=== PATIENT | male | born 1945 | race African-American/Black ===

== ENCOUNTER 2020-04-30 18:45 | Inpatient (IN) | payer MEDICARE, MEDICAID ==
[~2020-04-30] VITALS: Ht 175.3 cm; Wt 89.8 kg
[~2020-04-30 18:45] MED LIST: CLOP75TA4 PO; METF-414 PO; VALS1TAB76 PO
[2020-04-30 20:00] VITALS: BP 154/91
[2020-04-30] MEDS ORDERED: DOCUSATE SODIUM 100MG CAPSULE PO PRN (20:15)
[2020-04-30] MEDS ORDERED: MAGNESIUM/ALUMINUM HYDROXIDE/SIMETHICONE 30ML UDC PO PRN (20:15)
[2020-04-30] MEDS ORDERED: GUAIFENESIN 200MG/10ML SUGAR FREE UDC PO PRN (20:15)
[2020-04-30] MEDS ORDERED: DIPHENHYDRAMINE 50MG/ML VIAL IV PRN (20:15)
[2020-04-30] MEDS ORDERED: LORAZEPAM 0.5MG TABLET PO PRN (20:15)
[2020-04-30] MEDS ORDERED: DEXTROSE 50% WATER 50ML SYRINGE IV PRN (20:15)
[2020-04-30] MEDS ORDERED: ACETAMINOPHEN 650MG SUPP PR PRN (20:15)
[2020-04-30] MEDS ORDERED: ONDANSETRON HCL 4MG/2ML INJ IV PRN (20:15)
[2020-04-30] MEDS ORDERED: IPRATROPIUM/ALBUTEROL 0.5-3(2.5)MG/3ML NEB HHN PRN (20:15)
[2020-04-30] MEDS ORDERED: NA PHOS,M-B/NA PHOS,DI-BA ENEMA 118ML PR PRN (20:15)
[2020-04-30] MEDS ORDERED: ACETAMINOPHEN 325MG TABLET PO PRN (20:15)
[2020-04-30] MEDS ORDERED: CLONIDINE 0.1MG TABLET PO PRN (20:15)
[2020-04-30] MEDS: BLOOD SUGAR DIAGNOSTIC STRIP TEST SCH (21:00)
[2020-04-30] MEDS: INSULIN LISPRO 100 UNITS/ML SUBCUT SCH (21:00)
[2020-04-30] MEDS: FAMOTIDINE 20MG TABLET PO SCH (22:08)
[2020-04-30] MEDS: ASPIRIN 81MG EC TABLET PO SCH (22:10)
[2020-05-01 02:27] LABS: CLARITY URINE CLEAR (CLEAR); COLOR URINE YELLOW (YELLOW); KETONES URINE NEGATIVE (NEGATIVE); LEUKOCYTE ESTERASE URINE 3+ (NEGATIVE); NITRITE URINE NEGATIVE (NEGATIVE); OCCULT BLOOD URINE TRACE (NEGATIVE); PROTEIN URINE TRACE (NEGATIVE); SPECIFIC GRAVITY URINE 1.015 (1.005-1.030)
[2020-05-01] MEDS: INSULIN LISPRO 100 UNITS/ML SUBCUT SCH ×4 (06:29→21:00)
[2020-05-01] MEDS: BLOOD SUGAR DIAGNOSTIC STRIP TEST SCH ×4 (06:29→21:25)
[2020-05-01 07:50] VITALS: BP 127/80
[2020-05-01] MEDS: ENOXAPARIN 40MG/0.4ML SYR SUBCUT SCH (09:08)
[2020-05-01] MEDS: HYDROCODONE/ACETAMINOPHEN 5/325MG TABLET PO PRN (09:09)
[2020-05-01] MEDS: CLOPIDOGREL 75MG TABLET PO SCH (09:09)
[2020-05-01] MEDS: METFORMIN HCL 500MG TABLET PO SCH ×2 (09:09→16:51)
[2020-05-01] MEDS: ASPIRIN 81MG EC TABLET PO SCH (09:09)
[2020-05-01] MEDS ORDERED: BISACODYL 5MG TABLET PO PRN (13:15)
[2020-05-01] MEDS ORDERED: LACTULOSE 20G/30ML UDC PO PRN (13:15)
[2020-05-01] MEDS ORDERED: NA PHOS,M-B/NA PHOS,DI-BA ENEMA 118ML PR PRN (13:15)
[2020-05-01 20:00] VITALS: BP 159/85
[2020-05-01] MEDS ORDERED: CEFTRIAXONE 1,000 MG in DEXTROSE 5% WATER 50 ML IV SCH (20:00)
[2020-05-01] MEDS: FAMOTIDINE 20MG TABLET PO SCH (21:19)
[2020-05-01] MEDS: ASCORBIC ACID 500 MG TABLET PO SCH (21:19)
[2020-05-02] MEDS: INSULIN LISPRO 100 UNITS/ML SUBCUT SCH ×4 (06:07→21:00)
[2020-05-02] MEDS: BLOOD SUGAR DIAGNOSTIC STRIP TEST SCH ×4 (06:07→21:00)
[2020-05-02 08:00] VITALS: BP 149/77
[2020-05-02] MEDS: ASCORBIC ACID 500 MG TABLET PO SCH ×2 (08:53→21:50)
[2020-05-02] MEDS: ENOXAPARIN 40MG/0.4ML SYR SUBCUT SCH (08:54)
[2020-05-02] MEDS: METFORMIN HCL 500MG TABLET PO SCH ×2 (08:54→17:18)
[2020-05-02] MEDS: ASPIRIN 81MG EC TABLET PO SCH (08:54)
[2020-05-02] MEDS: CLOPIDOGREL 75MG TABLET PO SCH (08:54)
[2020-05-02] MEDS: HYDROCODONE/ACETAMINOPHEN 5/325MG TABLET PO PRN (09:05)
[2020-05-02 20:00] VITALS: BP 143/67
[2020-05-02] MEDS: FAMOTIDINE 20MG TABLET PO SCH (21:50)
[2020-05-03] MEDS: BLOOD SUGAR DIAGNOSTIC STRIP TEST SCH (06:55)
[2020-05-03 08:00] VITALS: BP 141/78
[2020-05-03] MEDS: INSULIN LISPRO 100 UNITS/ML SUBCUT SCH (09:00)
[2020-05-03] MEDS: CLOPIDOGREL 75MG TABLET PO SCH (09:26)
[2020-05-03] MEDS: METFORMIN HCL 500MG TABLET PO SCH ×2 (09:26→16:11)
[2020-05-03] MEDS: ASCORBIC ACID 500 MG TABLET PO SCH ×2 (09:26→19:51)
[2020-05-03] MEDS: ASPIRIN 81MG EC TABLET PO SCH (09:27)
[2020-05-03] MEDS: ENOXAPARIN 40MG/0.4ML SYR SUBCUT SCH (09:27)
[2020-05-03] MEDS ORDERED: LEVOFLOXACIN 500MG TABLET PO SCH (11:30)
[2020-05-03] MEDS: FAMOTIDINE 20MG TABLET PO SCH (19:51)
[2020-05-03 20:00] VITALS: BP 161/84
[2020-05-04 08:05] VITALS: BP 118/76
[2020-05-04] MEDS: ASPIRIN 81MG EC TABLET PO SCH (08:41)
[2020-05-04] MEDS: METFORMIN HCL 500MG TABLET PO SCH (08:41)
[2020-05-04] MEDS: CLOPIDOGREL 75MG TABLET PO SCH (08:41)
[2020-05-04] MEDS: ASCORBIC ACID 500 MG TABLET PO SCH (08:41)
[2020-05-04] MEDS: ENOXAPARIN 40MG/0.4ML SYR SUBCUT SCH (08:41)
== END 2020-05-04 10:30 | disposition home health service (06) | DRG 64 ==
PROVIDERS: ADMIT Psychiatry & Neurology Neurology; ATTEND Internal Medicine
DX: I63.9 Cerebral infarction, unspecified (principal); I50.43 Acute on chronic combined systolic (congestive) and diastolic (congestive) heart failure; N39.0 Urinary tract infection, site not specified; G93.49 Other encephalopathy; E11.42 Type 2 diabetes mellitus with diabetic polyneuropathy; D64.9 Anemia, unspecified; N31.9 Neuromuscular dysfunction of bladder, unspecified; E78.5 Hyperlipidemia, unspecified; I11.0 Hypertensive heart disease with heart failure; R53.1 Weakness; G89.29 Other chronic pain; M54.9 Dorsalgia, unspecified; R47.81 Slurred speech; M25.569 Pain in unspecified knee; M13.0 Polyarthritis, unspecified; I27.20 Pulmonary hypertension, unspecified; Z99.3 Dependence on wheelchair; Z86.73 Personal history of transient ischemic attack (TIA), and cerebral infarction without residual deficits
CPT/HCPCS: 36415; 81003; 82565; 82962; 87077; 87186; 92523; 92610; 97110; 97162; 97166; 97530; 97535; J0696; J1650; J7060

== ENCOUNTER 2021-01-10 09:24 | Emergency (ER) | payer MEDICARE, MEDICAID ==
[~2021-01-10] VITALS: Ht 177.8 cm; Wt 82.0 kg
[~2021-01-10 09:24] MED LIST changes: +CLOP-31 PO; -CLOP75TA4 PO
[2021-01-10 09:32] VITALS: BP 177/76
== END 2021-01-10 11:44 | disposition home or self-care (01) ==
LOC: ER 09:24
DX: Z46.6 Encounter for fitting and adjustment of urinary device (principal); E11.9 Type 2 diabetes mellitus without complications; K21.9 Gastro-esophageal reflux disease without esophagitis; I10 Essential (primary) hypertension; Z86.73 Personal history of transient ischemic attack (TIA), and cerebral infarction without residual deficits; Z98.890 Other specified postprocedural states
CPT/HCPCS: 51702; 99284; A4315

== ENCOUNTER 2021-01-15 19:47 | Inpatient (IN) | payer MEDICARE, MEDICAID ==
[~2021-01-15] VITALS: Ht 182.9 cm; Wt 86.2 kg
[2021-01-15] MEDS ORDERED: NITROGLYCERIN 0.4MG TABLET SL SL PRN (20:30)
[2021-01-15] MEDS ORDERED: ASPIRIN 81MG TABLET PO ONE (20:30)
[2021-01-15] MEDS ORDERED: DILTIAZEM HCL 5MG/ML 5ML VIAL IV ONE (20:30)
[2021-01-15 21:01] LABS: BASOPHILS % 0.4 % (0.0-2.0); HEMATOCRIT. 34.2 % (42.0-52.0); HEMOGLOBIN. 11.6 g/dL (14.0-18.0); LYMPHOCYTES % 34.4 % (20.0-50.0); MEAN CORPUSCULAR HEMOGLOBIN 29.5 pg (28.0-32.0); MEAN PLATELET VOLUME 7.5 fl (7.4-10.4); MONOCYTES % 7.4 % (2.0-8.0); NEUTROPHILS % 55.8 % (40.0-76.0); PLATELET 279 x1000/uL (130-400); RED BLOOD CELL COUNT 3.93 mill/uL (4.7-6.1); RED CELL DISTRIBUTION WIDTH 14.1 % (11.6-14.6)
[2021-01-15 21:07] LABS: CHLORIDE 105 mEq/L (98-107)
[2021-01-15 21:11] LABS: D-DIMER 0.72 mg/L FEU (<0.50); PARTIAL THROMBOPLASTIN TIME 29.6 sec (23.4-31.0); PROTHROMBIN TIME 11.2 sec (9.6-11.0)
[2021-01-15 21:13] LABS: ETHANOL BLOOD < 10 mg/dL
[2021-01-15] MEDS ORDERED: LORAZEPAM 2MG/ML CPJ IV ONE (21:15)
[2021-01-15] MEDS ORDERED: AMIODARONE HCL 900 MG in DEXT 5% WATER 482 ML IV STA (21:21)
[2021-01-15] MEDS ORDERED: ENOXAPARIN 100MG/ML SYR SUBCUT ONE (21:30)
[2021-01-15] MEDS ORDERED: AMIODARONE HCL 50MG/ML 3ML VIAL IV ONE (21:30)
[2021-01-15] MEDS ORDERED: AMIODARONE HCL 900 MG in DEXT 5% WATER 482 ML IV SCH (22:00)
[2021-01-16] VITALS (84 sets, daily range): BP systolic 111–164; BP diastolic 53–104
[2021-01-16] MEDS ORDERED: IOHEXOL-350 100 ML BOTTLE ONE (01:06)
[2021-01-16] MEDS ORDERED: FURO-152 MT (01:32)
[2021-01-16] MEDS ORDERED: POTA-79 PO (01:32)
[2021-01-16] MEDS ORDERED: METF-874 MT (01:32)
[2021-01-16] MEDS ORDERED: HYDROCODONE/ACETAMINOPHEN 5/325MG TABLET PO PRN (02:00)
[2021-01-16] MEDS ORDERED: AMIODARONE HCL 900 MG in DEXT 5% WATER 482 ML IV PRN (02:00)
[2021-01-16] MEDS ORDERED: DEXTROSE 50% WATER 50ML SYRINGE IV PRN (02:15)
[2021-01-16 03:00] LABS: *AMPHETAMINES SCREEN URINE NEGATIVE (NEGATIVE); *BARBITURATES SCREEN URINE NEGATIVE (NEGATIVE); *BENZODIAZEPINES SCREEN URINE NEGATIVE (NEGATIVE); *COCAINE SCREEN URINE NEGATIVE (NEGATIVE)
[2021-01-16 03:01] LABS: CANNABINOID URINE SCREEN NEGATIVE (NEGATIVE); METHADONE URINE SCREEN NEGATIVE (NEGATIVE); OPIATES URINE SCREEN NEGATIVE (NEGATIVE); PHENCYCLIDINE URINE SCREEN NEGATIVE (NEGATIVE)
[2021-01-16 05:43] LABS: BASOPHILS % 0.4 % (0.0-2.0); HEMOGLOBIN. 10.7 g/dL (14.0-18.0); LYMPHOCYTES % 48.1 % (20.0-50.0); MEAN CORPUSCULAR HEMOGLOBIN 29.4 pg (28.0-32.0); MEAN CORPUSCULAR VOLUME 88.2 fL (80.0-94.0); MEAN PLATELET VOLUME 7.8 fl (7.4-10.4); MONOCYTES % 8.1 % (2.0-8.0); NEUTROPHILS % 41.4 % (40.0-76.0); PLATELET 242 x1000/uL (130-400); RED BLOOD CELL COUNT 3.63 mill/uL (4.7-6.1); RED CELL DISTRIBUTION WIDTH 14.4 % (11.6-14.6)
[2021-01-16 05:52] LABS: CHLORIDE 104 mEq/L (98-107)
[2021-01-16] MEDS ORDERED: POTASSIUM CHLORIDE 20MEQ TABLET SR PO NR (07:06)
[2021-01-16] MEDS: INSULIN LISPRO 100 UNITS/ML SUBCUT SCH ×4 (08:20→20:40)
[2021-01-16] MEDS: CLOPIDOGREL 75MG TABLET PO SCH (08:37)
[2021-01-16] MEDS: POTASSIUM CHLORIDE 20MEQ TABLET SR PO SCH (08:37)
[2021-01-16] MEDS: FUROSEMIDE 20MG TABLET PO SCH (08:37)
[2021-01-16] MEDS: ENOXAPARIN 30MG/0.3ML SYR SUBCUT SCH ×2 (08:38→20:40)
[2021-01-16] MEDS: BLOOD SUGAR DIAGNOSTIC STRIP TEST SCH ×4 (08:40→20:41)
[2021-01-16] MEDS: METFORMIN HCL 500MG TABLET PO SCH ×2 (08:40→18:01)
[2021-01-16] MEDS ORDERED: MEDICATION NOT ON FORMULARY EA (Metformin HCl (Metformin HCl ER) 1 TAB) MT SCH (09:00)
[2021-01-16 11:41] LABS: CLARITY URINE CLOUDY (CLEAR); COLOR URINE YELLOW (YELLOW); KETONES URINE NEGATIVE (NEGATIVE); LEUKOCYTE ESTERASE URINE 3+ (NEGATIVE); NITRITE URINE NEGATIVE (NEGATIVE); OCCULT BLOOD URINE 2+ (NEGATIVE); PH URINE 5.5 (4.5-8.0); PROTEIN URINE 1+ (NEGATIVE); SPECIFIC GRAVITY URINE 1.019 (1.005-1.030)
[2021-01-16] MEDS: AMIODARONE HCL 200 MG TABLET PO SCH ×2 (12:16→20:40)
[2021-01-16] MEDS: CEFTRIAXONE 1,000 MG in DEXTROSE 5% WATER 50 ML IV SCH (13:49)
[2021-01-17] VITALS (47 sets, daily range): BP systolic 115–157; BP diastolic 63–92
[2021-01-17 05:28] LABS: BASOPHILS % 0.4 % (0.0-2.0); EOSINOPHILS % 1.9 % (0.0-5.0); LYMPHOCYTES % 43.6 % (20.0-50.0); MEAN CORPUSCULAR HEMOGLOBIN 29.2 pg (28.0-32.0); MEAN CORPUSCULAR VOLUME 87.3 fL (80.0-94.0); MEAN PLATELET VOLUME 7.5 fl (7.4-10.4); MONOCYTES % 6.8 % (2.0-8.0); NEUTROPHILS % 47.3 % (40.0-76.0); PLATELET 265 x1000/uL (130-400); RED BLOOD CELL COUNT 3.78 mill/uL (4.7-6.1); RED CELL DISTRIBUTION WIDTH 14.2 % (11.6-14.6)
[2021-01-17 05:35] LABS: CHLORIDE 105 mEq/L (98-107)
[2021-01-17] MEDS ORDERED: POTASSIUM CHLORIDE 20MEQ TABLET SR PO SCH (06:15)
[2021-01-17] MEDS ORDERED: MAGNESIUM 2 G PREMIX 50 ML IV ONE (06:30)
[2021-01-17] MEDS: FUROSEMIDE 20MG TABLET PO SCH (08:20)
[2021-01-17] MEDS: INSULIN LISPRO 100 UNITS/ML SUBCUT SCH ×4 (08:20→21:00)
[2021-01-17] MEDS: AMIODARONE HCL 200 MG TABLET PO SCH ×2 (08:20→21:52)
[2021-01-17] MEDS: METFORMIN HCL 500MG TABLET PO SCH ×2 (08:20→18:06)
[2021-01-17] MEDS: ENOXAPARIN 30MG/0.3ML SYR SUBCUT SCH (08:20)
[2021-01-17] MEDS: POTASSIUM CHLORIDE 20MEQ TABLET SR PO SCH (08:20)
[2021-01-17] MEDS: CLOPIDOGREL 75MG TABLET PO SCH (08:20)
[2021-01-17] MEDS: MAGNESIUM OXIDE 400MG TABLET PO SCH (08:20)
[2021-01-17] MEDS: BLOOD SUGAR DIAGNOSTIC STRIP TEST SCH ×4 (08:21→21:00)
[2021-01-17] MEDS: ASPIRIN 81MG EC TABLET PO SCH (09:41)
[2021-01-17] MEDS: METOPROLOL TARTRATE 25MG TABLET PO SCH ×2 (11:56→21:52)
[2021-01-17] MEDS: CEFTRIAXONE 1,000 MG in DEXTROSE 5% WATER 50 ML IV SCH (13:15)
[2021-01-18] VITALS (34 sets, daily range): BP systolic 100–162; BP diastolic 54–105
[2021-01-18 06:59] LABS: BASOPHILS % 0.5 % (0.0-2.0); EOSINOPHILS % 2.6 % (0.0-5.0); HEMATOCRIT. 32.7 % (42.0-52.0); HEMOGLOBIN. 11.1 g/dL (14.0-18.0); LYMPHOCYTES % 37.4 % (20.0-50.0); MEAN CORPUSCULAR HEMOGLOBIN 29.5 pg (28.0-32.0); MEAN PLATELET VOLUME 7.7 fl (7.4-10.4); MONOCYTES % 8.6 % (2.0-8.0); NEUTROPHILS % 50.9 % (40.0-76.0); PLATELET 257 x1000/uL (130-400); RED BLOOD CELL COUNT 3.76 mill/uL (4.7-6.1)
[2021-01-18 07:14] LABS: CHLORIDE 106 mEq/L (98-107)
[2021-01-18] MEDS: BLOOD SUGAR DIAGNOSTIC STRIP TEST SCH ×2 (07:50→12:50)
[2021-01-18] MEDS: INSULIN LISPRO 100 UNITS/ML SUBCUT SCH ×2 (08:20→13:20)
[2021-01-18] MEDS ORDERED: ENOXAPARIN 40MG/0.4ML SYR SUBCUT SCH (09:00)
[2021-01-18] MEDS: MAGNESIUM OXIDE 400MG TABLET PO SCH (09:09)
[2021-01-18] MEDS: METOPROLOL TARTRATE 25MG TABLET PO SCH (09:09)
[2021-01-18] MEDS: METFORMIN HCL 500MG TABLET PO SCH (09:09)
[2021-01-18] MEDS: FUROSEMIDE 20MG TABLET PO SCH (09:09)
[2021-01-18] MEDS: CLOPIDOGREL 75MG TABLET PO SCH (09:09)
[2021-01-18] MEDS: AMIODARONE HCL 200 MG TABLET PO SCH (09:10)
[2021-01-18] MEDS: ASPIRIN 81MG EC TABLET PO SCH (09:11)
[2021-01-18] MEDS: POTASSIUM CHLORIDE 20MEQ TABLET SR PO SCH (09:12)
[2021-01-18] MEDS ORDERED: AMI2 PO (12:12)
[2021-01-18] MEDS ORDERED: LEVO500T89 MT (12:12)
[2021-01-18] MEDS ORDERED: METO25TA6 PO (12:12)
== END 2021-01-18 14:30 | disposition home or self-care (01) | DRG 871 ==
LOC: ER 19:47 → CVICU 22:34 → ENRESERV 22:56 → 3WST 01-18 11:55 → CVICU 01-18 12:16
PROVIDERS: ADMIT Internal Medicine; ATTEND Internal Medicine
PROC: 5A2204Z Restoration of Cardiac Rhythm, Single (ICD-10-PCS; principal; 2021-01-15)
DX: A41.9 Sepsis, unspecified organism (principal); I21.4 Non-ST elevation (NSTEMI) myocardial infarction; E44.1 Mild protein-calorie malnutrition; G93.40 Encephalopathy, unspecified; N39.0 Urinary tract infection, site not specified; I47.1 Supraventricular tachycardia; D64.9 Anemia, unspecified; E83.42 Hypomagnesemia; E87.6 Hypokalemia; N40.0 Benign prostatic hyperplasia without lower urinary tract symptoms; I48.0 Paroxysmal atrial fibrillation; I10 Essential (primary) hypertension; E11.42 Type 2 diabetes mellitus with diabetic polyneuropathy; K21.9 Gastro-esophageal reflux disease without esophagitis; M19.90 Unspecified osteoarthritis, unspecified site; R55 Syncope and collapse; Z68.25 Body mass index [BMI] 25.0-25.9, adult; Z79.4 Long term (current) use of insulin; Z79.899 Other long term (current) drug therapy; Z86.73 Personal history of transient ischemic attack (TIA), and cerebral infarction without residual deficits; Z96.0 Presence of urogenital implants
CPT/HCPCS: 36415; 71045; 71275; 80048; 80053; 80076; 80305; 80320; 81003; 82962; 83036; 83735; 83880; 84443; 84484; 85025; 85379; 87106; 93005; 93306; 97161; 99291; J0282; J0696; J1650; J2060; J3475; J3490; J7060; Q9967; G0480

== ENCOUNTER 2021-01-23 20:32 | Emergency (ER) | payer MEDICARE, MEDICAID ==
[~2021-01-23] VITALS: Ht 172.7 cm; Wt 100.0 kg
[~2021-01-23 20:32] MED LIST changes: +AMI2 PO; +FURO-152 MT; +LEVO500T89 MT; +METF-874 MT; +METO25TA6 PO; +POTA-79 PO; -VALS1TAB76 PO
[2021-01-23 23:38] LABS: BASOPHILS % 0.2 % (0.0-2.0); EOSINOPHILS % 0.4 % (0.0-5.0); HEMATOCRIT. 34.3 % (42.0-52.0); HEMOGLOBIN. 12.1 g/dL (14.0-18.0); LYMPHOCYTES % 33.4 % (20.0-50.0); MEAN CORPUSCULAR HEMOGLOBIN 30.2 pg (28.0-32.0); MEAN CORPUSCULAR VOLUME 85.9 fL (80.0-94.0); MEAN PLATELET VOLUME 7.3 fl (7.4-10.4); MONOCYTES % 4.3 % (2.0-8.0); NEUTROPHILS % 61.7 % (40.0-76.0); PLATELET 305 x1000/uL (130-400); RED BLOOD CELL COUNT 3.99 mill/uL (4.7-6.1); RED CELL DISTRIBUTION WIDTH 14.5 % (11.6-14.6)
[2021-01-23 23:57] LABS: CHLORIDE 105 mEq/L (98-107)
[2021-01-24 01:44] LABS: CLARITY URINE CLOUDY (CLEAR); COLOR URINE YELLOW (YELLOW); KETONES URINE TRACE (NEGATIVE); LEUKOCYTE ESTERASE URINE 3+ (NEGATIVE); NITRITE URINE NEGATIVE (NEGATIVE); OCCULT BLOOD URINE 3+ (NEGATIVE); PROTEIN URINE 2+ (NEGATIVE); SPECIFIC GRAVITY URINE 1.014 (1.005-1.030); UROBILINOGEN URINE 0.2 E.U./dL (0.2-1.0)
[2021-01-24] MEDS ORDERED: SULF1TAB48 MT (01:54)
[2021-01-24] MEDS ORDERED: FLUC100T MT (01:54)
[2021-01-24] MEDS ORDERED: SULFAMETHOXAZOLE/TRIMETHOPRIM 800/160MG TABLET PO ONE (02:00)
[2021-01-24] MEDS ORDERED: METRONIDAZOLE 500 MG PREMIX 100 ML IV ONE (02:00)
[2021-01-24] MEDS ORDERED: FLUCONAZOLE 100MG TABLET PO ONE (02:00)
[2021-01-24] MEDS ORDERED: LEVO750T46 MT (02:01)
[2021-01-24] MEDS ORDERED: METR500T MT (02:01)
[2021-01-24 03:41] VITALS: BP 166/69
== END 2021-01-24 03:15 | disposition home or self-care (01) ==
LOC: ER 20:32
DX: N39.0 Urinary tract infection, site not specified (principal); K52.9 Noninfective gastroenteritis and colitis, unspecified; D64.9 Anemia, unspecified; E11.9 Type 2 diabetes mellitus without complications; K21.9 Gastro-esophageal reflux disease without esophagitis; I10 Essential (primary) hypertension; Z87.440 Personal history of urinary (tract) infections; Z87.891 Personal history of nicotine dependence; Z79.899 Other long term (current) drug therapy
CPT/HCPCS: 36415; 74176; 80053; 81003; 83690; 85025; 93005; 96365; 99285; J3490

== ENCOUNTER 2021-06-07 15:47 | Emergency (ER) | payer MEDICARE, MEDICAID ==
[~2021-06-07] VITALS: Ht 175.3 cm; Wt 89.0 kg
[~2021-06-07 15:47] MED LIST changes: +FLUC100T MT; +LEVO750T46 MT; +METR500T MT; +SULF1TAB48 MT
[2021-06-07 18:32] VITALS: BP 150/82
== END 2021-06-07 18:33 | disposition home or self-care (01) ==
LOC: ER 15:47
DX: T83.098A Other mechanical complication of other urinary catheter, initial encounter (principal); Y73.8 Miscellaneous gastroenterology and urology devices associated with adverse incidents, not elsewhere classified; Y92.039 Unspecified place in apartment as the place of occurrence of the external cause; I12.9 Hypertensive chronic kidney disease with stage 1 through stage 4 chronic kidney disease, or unspecified chronic kidney disease; E11.22 Type 2 diabetes mellitus with diabetic chronic kidney disease; N18.9 Chronic kidney disease, unspecified; R94.31 Abnormal electrocardiogram [ECG] [EKG]; Z87.440 Personal history of urinary (tract) infections; Z86.19 Personal history of other infectious and parasitic diseases; Z79.84 Long term (current) use of oral hypoglycemic drugs; Z79.899 Other long term (current) drug therapy
CPT/HCPCS: 93005; 99283; A4315

== ENCOUNTER 2021-08-02 14:02 | Inpatient (IN) | payer MEDICARE, MEDICAID ==
[~2021-08-02] VITALS: Ht 177.8 cm; Wt 85.7 kg
[2021-08-02] MEDS ORDERED: SODIUM CHLORIDE 0.9% 1,000 ML IV ONE (14:30)
[2021-08-02 15:03] LABS: BASOPHILS % 0.3 % (0.0-2.0); HEMATOCRIT. 37.9 % (42.0-52.0); HEMOGLOBIN. 12.9 g/dL (14.0-18.0); MEAN CORPUSCULAR HEMOGLOBIN 29.9 pg (28.0-32.0); MEAN CORPUSCULAR VOLUME 87.9 fL (80.0-94.0); MEAN PLATELET VOLUME 7.5 fl (7.4-10.4); MONOCYTES % 6.6 % (2.0-8.0); NEUTROPHILS % 85.1 % (40.0-76.0); PLATELET 444 x1000/uL (130-400); RED BLOOD CELL COUNT 4.31 mill/uL (4.7-6.1); RED CELL DISTRIBUTION WIDTH 13.2 % (11.6-14.6)
[2021-08-02 15:06] LABS: CHLORIDE 101 mEq/L (98-107)
[2021-08-02] MEDS ORDERED: CEFTRIAXONE 1 G PREMIX 50 ML IV ONE (16:30)
[2021-08-02] MEDS ORDERED: MAGNESIUM/ALUMINUM HYDROXIDE/SIMETHICONE 30ML UDC PO PRN (20:15)
[2021-08-02] MEDS ORDERED: HYDROCODONE/ACETAMINOPHEN 5/325MG TABLET PO PRN (20:15)
[2021-08-02] MEDS ORDERED: ACETAMINOPHEN 325MG TABLET PO PRN (20:15)
[2021-08-02] MEDS ORDERED: ONDANSETRON HCL 4MG/2ML INJ IV PRN (20:15)
[2021-08-02] MEDS ORDERED: GUAIFENESIN 200MG/10ML SUGAR FREE UDC PO PRN (20:15)
[2021-08-02] MEDS: SODIUM CHLORIDE 0.9% 1,000 ML IV SCH (20:15)
[2021-08-02] MEDS ORDERED: CEFTRIAXONE 1 G PREMIX 50 ML IV SCH (20:15)
[2021-08-02 20:53] LABS: CLARITY URINE TURBID (CLEAR); COLOR URINE YELLOW (YELLOW); KETONES URINE NEGATIVE (NEGATIVE); LEUKOCYTE ESTERASE URINE 3+ (NEGATIVE); NITRITE URINE NEGATIVE (NEGATIVE); OCCULT BLOOD URINE 2+ (NEGATIVE); PH URINE 6.5 (4.5-8.0); PROTEIN URINE 3+ (NEGATIVE); SPECIFIC GRAVITY URINE 1.022 (1.005-1.030); UROBILINOGEN URINE 0.2 E.U./dL (0.2-1.0)
[2021-08-02] MEDS: ENOXAPARIN 40MG/0.4ML SYR SUBCUT SCH (21:00)
[2021-08-02] MEDS ORDERED: DEXTROSE 50% WATER 50ML SYRINGE IV PRN (23:30)
[2021-08-02] MEDS ORDERED: NALOXONE HCL 0.4 MG/ML 1ML VIAL IV PRN (23:45)
[2021-08-03] VITALS: BP 119/68
[2021-08-03] MEDS ORDERED: ZOLPIDEM TARTRATE 5MG TABLET PO PRN (00:45)
[2021-08-03] MEDS ORDERED: ZOLP5TAB2 PO (01:20)
[2021-08-03] MEDS ORDERED: HYDR12.54 PO (01:42)
[2021-08-03 04:00] VITALS: BP 141/81
[2021-08-03] MEDS: BLOOD SUGAR DIAGNOSTIC STRIP TEST SCH ×4 (06:36→21:26)
[2021-08-03] MEDS: INSULIN LISPRO 100 UNITS/ML SUBCUT SCH ×4 (06:36→21:26)
[2021-08-03 07:37] LABS: HEMATOCRIT. 35.2 % (42.0-52.0); HEMOGLOBIN. 11.7 g/dL (14.0-18.0); MEAN CORPUSCULAR HEMOGLOBIN 29.5 pg (28.0-32.0); MEAN CORPUSCULAR VOLUME 88.6 fL (80.0-94.0); MEAN PLATELET VOLUME 7.8 fl (7.4-10.4); PLATELET 332 x1000/uL (130-400); RED BLOOD CELL COUNT 3.98 mill/uL (4.7-6.1); RED CELL DISTRIBUTION WIDTH 13.5 % (11.6-14.6)
[2021-08-03 07:49] LABS: CHLORIDE 101 mEq/L (98-107)
[2021-08-03 08:00] VITALS: BP 95/61
[2021-08-03] MEDS: SODIUM CHLORIDE 0.9% 1,000 ML IV SCH ×2 (08:52→10:35)
[2021-08-03] MEDS: AMIODARONE HCL 200 MG TABLET PO SCH (10:34)
[2021-08-03] MEDS: CLOPIDOGREL 75MG TABLET PO SCH (10:34)
[2021-08-03 12:00] VITALS: BP 130/90
[2021-08-03 14:07] LABS: PLATELET ESTIMATE NORMAL
[2021-08-03 16:00] VITALS: BP 133/69
[2021-08-03] MEDS: CEFTRIAXONE 1,000 MG in DEXTROSE 5% WATER 50 ML IV SCH (17:08)
[2021-08-03] MEDS ORDERED: MAGNESIUM SULFATE 3 GM in DEXT 5% WATER 96 ML IV ONE (18:00)
[2021-08-03] MEDS ORDERED: POTASSIUM CHLORIDE 20MEQ TABLET SR PO NR (18:30)
[2021-08-03 20:00] VITALS: BP 114/67
[2021-08-03] MEDS: METOPROLOL TARTRATE 25MG TABLET PO SCH (21:24)
[2021-08-03] MEDS: ZOLPIDEM TARTRATE 5MG TABLET PO SCH (21:24)
[2021-08-03] MEDS: ENOXAPARIN 40MG/0.4ML SYR SUBCUT SCH (21:25)
[2021-08-04] VITALS: BP 115/80
[2021-08-04 04:00] VITALS: BP 120/69
[2021-08-04] MEDS: BLOOD SUGAR DIAGNOSTIC STRIP TEST SCH ×4 (06:42→21:55)
[2021-08-04] MEDS: INSULIN LISPRO 100 UNITS/ML SUBCUT SCH ×4 (06:42→21:58)
[2021-08-04 06:43] LABS: BASOPHILS % 0.1 % (0.0-2.0); EOSINOPHILS % 0.1 % (0.0-5.0); HEMATOCRIT. 30.9 % (42.0-52.0); HEMOGLOBIN. 10.5 g/dL (14.0-18.0); LYMPHOCYTES % 8.8 % (20.0-50.0); MEAN CORPUSCULAR HEMOGLOBIN 30.1 pg (28.0-32.0); MEAN CORPUSCULAR VOLUME 88.4 fL (80.0-94.0); MEAN PLATELET VOLUME 7.8 fl (7.4-10.4); MONOCYTES % 3.9 % (2.0-8.0); NEUTROPHILS % 87.1 % (40.0-76.0); PLATELET 256 x1000/uL (130-400); RED CELL DISTRIBUTION WIDTH 13.8 % (11.6-14.6)
[2021-08-04 07:50] LABS: CHLORIDE 104 mEq/L (98-107)
[2021-08-04 08:00] VITALS: BP 131/83
[2021-08-04] MEDS: CLOPIDOGREL 75MG TABLET PO SCH (09:47)
[2021-08-04] MEDS: METOPROLOL TARTRATE 25MG TABLET PO SCH ×2 (09:48→22:00)
[2021-08-04] MEDS: AMIODARONE HCL 200 MG TABLET PO SCH ×2 (09:48→22:01)
[2021-08-04] MEDS: SODIUM CHLORIDE 0.9% 1,000 ML IV SCH (11:41)
[2021-08-04 12:00] VITALS: BP 124/63
[2021-08-04 16:00] VITALS: BP 133/89
[2021-08-04] MEDS: CEFTRIAXONE 1,000 MG in DEXTROSE 5% WATER 50 ML IV SCH (17:41)
[2021-08-04] MEDS: MAGNESIUM OXIDE 400MG TABLET PO SCH (17:48)
[2021-08-04 20:00] VITALS: BP 119/68
[2021-08-04] MEDS ORDERED: ENOXAPARIN 30MG/0.3ML SYR SUBCUT SCH (21:00)
[2021-08-04] MEDS: ZOLPIDEM TARTRATE 5MG TABLET PO SCH (21:59)
[2021-08-05] VITALS: BP 125/86
[2021-08-05] MEDS: SODIUM CHLORIDE 0.9% 1,000 ML IV SCH ×2 (03:37→12:57)
[2021-08-05 04:00] VITALS: BP 133/73
[2021-08-05] MEDS: BLOOD SUGAR DIAGNOSTIC STRIP TEST SCH ×2 (06:18→12:30)
[2021-08-05] MEDS: INSULIN LISPRO 100 UNITS/ML SUBCUT SCH ×2 (06:39→12:58)
[2021-08-05 06:59] LABS: BASOPHILS % 0.1 % (0.0-2.0); EOSINOPHILS % 0.4 % (0.0-5.0); HEMATOCRIT. 29.8 % (42.0-52.0); LYMPHOCYTES % 8.6 % (20.0-50.0); MEAN PLATELET VOLUME 7.9 fl (7.4-10.4); MONOCYTES % 3.2 % (2.0-8.0); NEUTROPHILS % 87.7 % (40.0-76.0); PLATELET 229 x1000/uL (130-400); RED BLOOD CELL COUNT 3.35 mill/uL (4.7-6.1); RED CELL DISTRIBUTION WIDTH 13.8 % (11.6-14.6)
[2021-08-05 07:10] LABS: CHLORIDE 104 mEq/L (98-107)
[2021-08-05 08:00] VITALS: BP 118/65
[2021-08-05] MEDS: CLOPIDOGREL 75MG TABLET PO SCH (09:13)
[2021-08-05] MEDS: AMIODARONE HCL 200 MG TABLET PO SCH (09:13)
[2021-08-05] MEDS: MAGNESIUM OXIDE 400MG TABLET PO SCH (09:13)
[2021-08-05] MEDS: METOPROLOL TARTRATE 25MG TABLET PO SCH (09:13)
[2021-08-05 12:00] VITALS: BP 98/55
[2021-08-05 13:00] VITALS: BP 151/89
[2021-08-05 13:18] VITALS: BP 151/89
== END 2021-08-05 15:49 | disposition home health service (06) | DRG 871 ==
LOC: ER 14:02 → 8WST 18:42 → EDBEDREQ 19:25 → CANRESERV 22:04 → ENRESERV 22:04 → 6WST 23:43 → 8WST 23:45
PROVIDERS: ADMIT Hospitalist; ATTEND Hospitalist
DX: A41.81 Sepsis due to Enterococcus (principal); E43 Unspecified severe protein-calorie malnutrition; N17.9 Acute kidney failure, unspecified; I47.2 Ventricular tachycardia; N39.0 Urinary tract infection, site not specified; E11.9 Type 2 diabetes mellitus without complications; I10 Essential (primary) hypertension; I48.91 Unspecified atrial fibrillation; E83.42 Hypomagnesemia; E86.0 Dehydration; I27.20 Pulmonary hypertension, unspecified; I35.1 Nonrheumatic aortic (valve) insufficiency; K21.9 Gastro-esophageal reflux disease without esophagitis; Z20.822 Contact with and (suspected) exposure to COVID-19; M19.90 Unspecified osteoarthritis, unspecified site; R79.89 Other specified abnormal findings of blood chemistry; Z86.73 Personal history of transient ischemic attack (TIA), and cerebral infarction without residual deficits; Z74.01 Bed confinement status; Z87.440 Personal history of urinary (tract) infections; Z79.02 Long term (current) use of antithrombotics/antiplatelets; Z68.27 Body mass index [BMI] 27.0-27.9, adult; Z99.3 Dependence on wheelchair; Z28.3 Underimmunization status
CPT/HCPCS: 36415; 71045; 76770; 80053; 81003; 82962; 83735; 84484; 85025; 87077; 87186; 87426; 93005; 93970; 99285; J0696; J1650; J1815; J3475; J7030; J7060

== ENCOUNTER 2022-03-25 11:41 | Inpatient (IN) | payer MEDICARE, MEDICAID ==
[~2022-03-25] VITALS: Ht 177.8 cm; Wt 85.5 kg
[~2022-03-25 11:41] MED LIST changes: +HYDR12.54 PO; -LEVO500T89 MT; +LEVO500T90 MT; +ZOLP5TAB2 PO
[2022-03-25 12:45] LABS: BASOPHILS % 0.2 % (0.0-2.0); EOSINOPHILS % 0.3 % (0.0-5.0); HEMATOCRIT. 31.6 % (42.0-52.0); HEMOGLOBIN. 10.9 g/dL (14.0-18.0); LYMPHOCYTES % 18.2 % (20.0-50.0); MEAN CORPUSCULAR HEMOGLOBIN 29.4 pg (28.0-32.0); MEAN CORPUSCULAR VOLUME 85.5 fL (80.0-94.0); MEAN PLATELET VOLUME 7.4 fl (7.4-10.4); MONOCYTES % 9.2 % (2.0-8.0); NEUTROPHILS % 72.1 % (40.0-76.0); PLATELET 344 x1000/uL (130-400); RED BLOOD CELL COUNT 3.69 mill/uL (4.7-6.1); RED CELL DISTRIBUTION WIDTH 14.8 % (11.6-14.6)
[2022-03-25] MEDS ORDERED: SODIUM CHLORIDE 0.9% 1,000 ML IV ONE (12:45)
[2022-03-25 12:51] LABS: CHLORIDE 101 mEq/L (98-107)
[2022-03-25 13:22] LABS: INR 1.1; PROTHROMBIN TIME 11.6 sec (9.6-11.0)
[2022-03-25] MEDS ORDERED: PIPERACILLIN/TAZ 3.375G PREMIX 50 ML IV ONE (13:45)
[2022-03-25] MEDS ORDERED: VANCOMYCIN 1G PREMIX 200 ML IV ONE (13:45)
[2022-03-25] MEDS ORDERED: POTASSIUM CHLORIDE 20MEQ TABLET SR PO ONE (13:45)
[2022-03-25] MEDS ORDERED: GUAIFENESIN 200MG/10ML SUGAR FREE UDC PO PRN (16:00)
[2022-03-25] MEDS ORDERED: IPRATROPIUM/ALBUTEROL 0.5-3(2.5)MG/3ML NEB NEB PRN (16:00)
[2022-03-25] MEDS ORDERED: ZOLPIDEM TARTRATE 5MG TABLET PO PRN (16:00)
[2022-03-25] MEDS ORDERED: DEXTROSE 50% WATER 50ML SYRINGE IV PRN (16:00)
[2022-03-25] MEDS ORDERED: POTASSIUM CHLORIDE 20MEQ TABLET SR PO NR (16:00)
[2022-03-25] MEDS ORDERED: DOCUSATE SODIUM 100MG CAPSULE PO PRN (16:00)
[2022-03-25] MEDS ORDERED: ONDANSETRON HCL 4MG/2ML INJ IV PRN (16:00)
[2022-03-25] MEDS ORDERED: MAGNESIUM/ALUMINUM HYDROXIDE/SIMETHICONE 30ML UDC PO PRN (16:00)
[2022-03-25] MEDS ORDERED: ACETAMINOPHEN 325MG TABLET PO PRN ×2 (16:00)
[2022-03-25] MEDS ORDERED: CLONIDINE 0.1MG TABLET PO PRN (16:00)
[2022-03-25] MEDS ORDERED: NITROGLYCERIN 0.4MG TABLET SL SL PRN (16:00)
[2022-03-25] MEDS ORDERED: KETOROLAC 15MG/ML VIAL IV PRN (16:19)
[2022-03-25 17:00] VITALS: BP 113/78
[2022-03-25] MEDS ORDERED: ENOXAPARIN 40MG/0.4ML SYR SUBCUT SCH (17:00)
[2022-03-25 17:18] LABS: FOLIC ACID (FOLATE) SERUM 7.5 ng/mL (>5.38)
[2022-03-25] MEDS: BLOOD SUGAR DIAGNOSTIC STRIP TEST SCH ×2 (17:55→21:56)
[2022-03-25] MEDS: INSULIN LISPRO 100 UNITS/ML SUBCUT SCH ×2 (18:01→22:01)
[2022-03-25 19:30] VITALS: BP 113/78
[2022-03-25 20:00] VITALS: BP 124/71
[2022-03-25] MEDS: FAMOTIDINE 20MG TABLET PO SCH (22:00)
[2022-03-25] MEDS: VANCOMYCIN 750MG PREMIX 150 ML IV SCH (22:00)
[2022-03-25] MEDS: METOPROLOL TARTRATE 25MG TABLET PO SCH (22:00)
[2022-03-25] MEDS: PIPERACILLIN/TAZOBACTAM 3.375 G in DEXTROSE 5% WATER 50 ML IV SCH (22:00)
[2022-03-26] VITALS: BP 110/72
[2022-03-26 00:44] LABS: CREATINE KINASE 31 IU/L (39-308); CREATINE KINASE MB FRACTION < 1.0 ng/mL (0.5-3.6)
[2022-03-26 04:00] VITALS: BP 128/75
[2022-03-26] MEDS: PIPERACILLIN/TAZOBACTAM 3.375 G in DEXTROSE 5% WATER 50 ML IV SCH ×3 (06:21→21:57)
[2022-03-26] MEDS: BLOOD SUGAR DIAGNOSTIC STRIP TEST SCH ×4 (06:21→20:54)
[2022-03-26 07:07] LABS: BASOPHILS % 0.3 % (0.0-2.0); EOSINOPHILS % 0.3 % (0.0-5.0); HEMATOCRIT. 27.7 % (42.0-52.0); HEMOGLOBIN. 9.8 g/dL (14.0-18.0); LYMPHOCYTES % 25.1 % (20.0-50.0); MEAN CORPUSCULAR HEMOGLOBIN 30.1 pg (28.0-32.0); MEAN CORPUSCULAR VOLUME 85.1 fL (80.0-94.0); MEAN PLATELET VOLUME 7.7 fl (7.4-10.4); MONOCYTES % 8.7 % (2.0-8.0); NEUTROPHILS % 65.6 % (40.0-76.0); PLATELET 309 x1000/uL (130-400); RED BLOOD CELL COUNT 3.25 mill/uL (4.7-6.1); RED CELL DISTRIBUTION WIDTH 15.2 % (11.6-14.6)
[2022-03-26 07:12] LABS: CHLORIDE 104 mEq/L (98-107)
[2022-03-26 07:43] LABS: CREATINE KINASE 24 IU/L (39-308); CREATINE KINASE MB FRACTION < 1.0 ng/mL (0.5-3.6); PHOSPHORUS 1.8 mg/dL (2.5-4.9)
[2022-03-26 08:00] VITALS: BP 130/79
[2022-03-26] MEDS: FAMOTIDINE 20MG TABLET PO SCH ×2 (09:10→20:13)
[2022-03-26] MEDS: VANCOMYCIN 750MG PREMIX 150 ML IV SCH (09:10)
[2022-03-26] MEDS: AMIODARONE HCL 200 MG TABLET PO SCH (09:11)
[2022-03-26] MEDS: METOPROLOL TARTRATE 25MG TABLET PO SCH ×2 (09:11→20:12)
[2022-03-26] MEDS: ASPIRIN 325MG EC TABLET PO SCH (09:11)
[2022-03-26] MEDS: INSULIN LISPRO 100 UNITS/ML SUBCUT SCH ×4 (09:12→20:59)
[2022-03-26 12:00] VITALS: BP 128/70
[2022-03-26] MEDS: ENOXAPARIN 80MG/0.8ML SYR SUBCUT SCH ×2 (13:31→20:14)
[2022-03-26] MEDS ORDERED: POTASSIUM CHLORIDE 20MEQ/PACKET PO NR (14:15)
[2022-03-26] MEDS ORDERED: KCL 20MEQ/100ML PREMIX 100 ML IV NR (15:00)
[2022-03-26 16:00] VITALS: BP 131/73
[2022-03-26] MEDS ORDERED: POTASSIUM PHOS,M-BASIC-D-BASIC 20 MMOL in DEXT 5% WATER 243.3333 ML IV NR (16:00)
[2022-03-26] MEDS ORDERED: MAGNESIUM 1 G PREMIX 100 ML IV NR (16:00)
[2022-03-26 20:00] VITALS: BP 149/90
[2022-03-27] VITALS: BP 108/78
[2022-03-27] MEDS: VANCOMYCIN 750MG PREMIX 150 ML IV SCH ×2 (02:54→10:05)
[2022-03-27 04:00] VITALS: BP 152/82
[2022-03-27] MEDS: PIPERACILLIN/TAZOBACTAM 3.375 G in DEXTROSE 5% WATER 50 ML IV SCH ×3 (05:21→22:04)
[2022-03-27] MEDS: BLOOD SUGAR DIAGNOSTIC STRIP TEST SCH ×4 (06:21→21:56)
[2022-03-27 08:00] VITALS: BP 141/81
[2022-03-27 09:05] LABS: CHLORIDE 107 mEq/L (98-107)
[2022-03-27] MEDS: FAMOTIDINE 20MG TABLET PO SCH ×2 (10:03→22:04)
[2022-03-27] MEDS: METOPROLOL TARTRATE 25MG TABLET PO SCH ×2 (10:03→22:04)
[2022-03-27] MEDS: AMIODARONE HCL 200 MG TABLET PO SCH (10:03)
[2022-03-27] MEDS: ASPIRIN 325MG EC TABLET PO SCH (10:04)
[2022-03-27] MEDS: ENOXAPARIN 80MG/0.8ML SYR SUBCUT SCH ×2 (10:05→22:05)
[2022-03-27] MEDS: INSULIN LISPRO 100 UNITS/ML SUBCUT SCH ×4 (10:18→22:05)
[2022-03-27] MEDS ORDERED: POTASSIUM CHLORIDE 20MEQ TABLET SR PO NR (11:45)
[2022-03-27 12:00] VITALS: BP 147/77
[2022-03-27] MEDS ORDERED: LIDOCAINE HCL 1% 10 MG/ML 10ML VIAL ONE (14:45)
[2022-03-27 16:20] VITALS: BP 140/70
[2022-03-27] MEDS ORDERED: IOHEXOL-350 100 ML BOTTLE ONE (17:04)
[2022-03-27 20:00] VITALS: BP 153/76
[2022-03-28] VITALS: BP 147/81
[2022-03-28 04:00] VITALS: BP 155/87
[2022-03-28] MEDS: PIPERACILLIN/TAZOBACTAM 3.375 G in DEXTROSE 5% WATER 50 ML IV SCH ×3 (06:37→22:06)
[2022-03-28] MEDS: BLOOD SUGAR DIAGNOSTIC STRIP TEST SCH ×4 (06:55→21:00)
[2022-03-28 08:00] VITALS: BP 138/79
[2022-03-28 08:19] LABS: CLARITY URINE CLOUDY (CLEAR); COLOR URINE YELLOW (YELLOW); KETONES URINE NEGATIVE (NEGATIVE); LEUKOCYTE ESTERASE URINE 3+ (NEGATIVE); NITRITE URINE NEGATIVE (NEGATIVE); OCCULT BLOOD URINE 2+ (NEGATIVE); PROTEIN URINE TRACE (NEGATIVE); SPECIFIC GRAVITY URINE 1.014 (1.005-1.030); UROBILINOGEN URINE 0.2 E.U./dL (0.2-1.0)
[2022-03-28] MEDS: AMIODARONE HCL 200 MG TABLET PO SCH (09:06)
[2022-03-28] MEDS: FAMOTIDINE 20MG TABLET PO SCH ×2 (09:06→21:31)
[2022-03-28] MEDS: PANTOT AC/MIN OIL/PET HY-PHL OINT (AQUAPHOR) TOP SCH (09:06)
[2022-03-28] MEDS: ASPIRIN 325MG EC TABLET PO SCH (09:07)
[2022-03-28] MEDS: ENOXAPARIN 80MG/0.8ML SYR SUBCUT SCH ×2 (09:07→22:07)
[2022-03-28] MEDS: METOPROLOL TARTRATE 25MG TABLET PO SCH ×3 (09:07→21:32)
[2022-03-28] MEDS: INSULIN LISPRO 100 UNITS/ML SUBCUT SCH ×4 (09:08→22:07)
[2022-03-28 09:36] LABS: *AMPHETAMINES SCREEN URINE NEGATIVE (NEGATIVE); *BARBITURATES SCREEN URINE NEGATIVE (NEGATIVE); *BENZODIAZEPINES SCREEN URINE NEGATIVE (NEGATIVE); *COCAINE SCREEN URINE NEGATIVE (NEGATIVE); CANNABINOID URINE SCREEN NEGATIVE (NEGATIVE); METHADONE URINE SCREEN NEGATIVE (NEGATIVE); OPIATES URINE SCREEN NEGATIVE (NEGATIVE); PHENCYCLIDINE URINE SCREEN NEGATIVE (NEGATIVE)
[2022-03-28] MEDS ORDERED: VANCOMYCIN 750MG PREMIX 150 ML IV SCH (10:00)
[2022-03-28 12:00] VITALS: BP 127/86
[2022-03-28 16:00] VITALS: BP 132/68
[2022-03-28 20:00] VITALS: BP 118/86
[2022-03-29] VITALS: BP 149/92
[2022-03-29 04:00] VITALS: BP 159/91
[2022-03-29] MEDS: PIPERACILLIN/TAZOBACTAM 3.375 G in DEXTROSE 5% WATER 50 ML IV SCH ×3 (06:42→21:00)
[2022-03-29] MEDS: BLOOD SUGAR DIAGNOSTIC STRIP TEST SCH ×4 (07:12→20:30)
[2022-03-29] MEDS: INSULIN LISPRO 100 UNITS/ML SUBCUT SCH ×4 (07:30→20:30)
[2022-03-29 08:00] VITALS: BP 151/93
[2022-03-29] MEDS: METOPROLOL TARTRATE 25MG TABLET PO SCH ×2 (10:28→20:58)
[2022-03-29] MEDS: AMIODARONE HCL 200 MG TABLET PO SCH (10:28)
[2022-03-29] MEDS: ASPIRIN 325MG EC TABLET PO SCH (10:28)
[2022-03-29] MEDS: PANTOT AC/MIN OIL/PET HY-PHL OINT (AQUAPHOR) TOP SCH (10:28)
[2022-03-29] MEDS: ENOXAPARIN 80MG/0.8ML SYR SUBCUT SCH ×2 (10:29→20:58)
[2022-03-29] MEDS: FAMOTIDINE 20MG TABLET PO SCH ×2 (10:30→20:58)
[2022-03-29 12:00] VITALS: BP 154/86
[2022-03-29 16:00] VITALS: BP 122/77
[2022-03-29] MEDS ORDERED: CEFTRIAXONE 1,000 MG in DEXTROSE 5% WATER 50 ML IV SCH (18:00)
[2022-03-29 20:00] VITALS: BP 130/72
[2022-03-29] MEDS: CEFTRIAXONE 1,000 MG in DEXTROSE 5% WATER 50 ML IV SCH (20:57)
[2022-03-30] VITALS: BP 131/78
[2022-03-30 04:00] VITALS: BP 128/74
[2022-03-30] MEDS: PIPERACILLIN/TAZOBACTAM 3.375 G in DEXTROSE 5% WATER 50 ML IV SCH ×2 (06:06→13:40)
[2022-03-30] MEDS: BLOOD SUGAR DIAGNOSTIC STRIP TEST SCH ×4 (06:35→20:25)
[2022-03-30 07:35] VITALS: BP 122/76
[2022-03-30] MEDS: INSULIN LISPRO 100 UNITS/ML SUBCUT SCH ×4 (07:50→21:17)
[2022-03-30] MEDS: METOPROLOL TARTRATE 25MG TABLET PO SCH ×2 (08:48→21:07)
[2022-03-30] MEDS: ASPIRIN 325MG EC TABLET PO SCH (08:48)
[2022-03-30] MEDS: FAMOTIDINE 20MG TABLET PO SCH ×2 (08:49→21:07)
[2022-03-30] MEDS: ENOXAPARIN 80MG/0.8ML SYR SUBCUT SCH ×2 (08:49→21:07)
[2022-03-30] MEDS: PANTOT AC/MIN OIL/PET HY-PHL OINT (AQUAPHOR) TOP SCH (08:52)
[2022-03-30] MEDS: AMIODARONE HCL 200 MG TABLET PO SCH (08:58)
[2022-03-30 12:00] VITALS: BP 138/78
[2022-03-30 15:48] VITALS: BP_SYST 136; BP_SYST 138; BP_DIAS 74; BP_DIAS 78
[2022-03-30 20:00] VITALS: BP 121/77
[2022-03-30] MEDS: CEFTRIAXONE 1,000 MG in DEXTROSE 5% WATER 50 ML IV SCH (21:07)
[2022-03-31] VITALS: BP 116/73
[2022-03-31 04:00] VITALS: BP 125/72
[2022-03-31] MEDS: BLOOD SUGAR DIAGNOSTIC STRIP TEST SCH ×4 (06:23→20:29)
[2022-03-31] MEDS: INSULIN LISPRO 100 UNITS/ML SUBCUT SCH ×4 (07:50→21:12)
[2022-03-31 08:00] VITALS: BP 140/85
[2022-03-31] MEDS: FAMOTIDINE 20MG TABLET PO SCH ×2 (09:06→21:06)
[2022-03-31] MEDS: ASPIRIN 325MG EC TABLET PO SCH (09:06)
[2022-03-31] MEDS: AMIODARONE HCL 200 MG TABLET PO SCH (09:06)
[2022-03-31] MEDS: METOPROLOL TARTRATE 25MG TABLET PO SCH ×2 (09:07→21:00)
[2022-03-31] MEDS: ENOXAPARIN 80MG/0.8ML SYR SUBCUT SCH ×2 (09:08→21:06)
[2022-03-31 12:00] VITALS: BP 141/87
[2022-03-31] MEDS: PANTOT AC/MIN OIL/PET HY-PHL OINT (AQUAPHOR) TOP SCH (13:03)
[2022-03-31 16:00] VITALS: BP 133/75
[2022-03-31 20:00] VITALS: BP 106/73
[2022-03-31] MEDS: METRONIDAZOLE 500MG TABLET PO SCH (21:06)
[2022-03-31] MEDS: CEFTRIAXONE 1,000 MG in DEXTROSE 5% WATER 50 ML IV SCH (21:06)
[2022-04-01] VITALS: BP 116/72
[2022-04-01 04:00] VITALS: BP 118/73
[2022-04-01] MEDS: BLOOD SUGAR DIAGNOSTIC STRIP TEST SCH ×4 (07:20→21:08)
[2022-04-01] MEDS: INSULIN LISPRO 100 UNITS/ML SUBCUT SCH ×4 (07:50→21:00)
[2022-04-01 08:12] VITALS: BP 162/86
[2022-04-01] MEDS: METRONIDAZOLE 500MG TABLET PO SCH ×2 (10:16→21:16)
[2022-04-01] MEDS: AMIODARONE HCL 200 MG TABLET PO SCH (10:16)
[2022-04-01] MEDS: FAMOTIDINE 20MG TABLET PO SCH ×2 (10:17→21:16)
[2022-04-01] MEDS: ENOXAPARIN 80MG/0.8ML SYR SUBCUT SCH ×2 (10:17→21:16)
[2022-04-01] MEDS: METOPROLOL TARTRATE 25MG TABLET PO SCH ×2 (10:17→21:00)
[2022-04-01] MEDS: ASPIRIN 325MG EC TABLET PO SCH (10:17)
[2022-04-01 12:03] VITALS: BP 110/72
[2022-04-01] MEDS: PANTOT AC/MIN OIL/PET HY-PHL OINT (AQUAPHOR) TOP SCH (12:05)
[2022-04-01 16:00] VITALS: BP 125/77
[2022-04-01 20:00] VITALS: BP 110/71
[2022-04-01] MEDS: CEFTRIAXONE 1,000 MG in DEXTROSE 5% WATER 50 ML IV SCH (21:16)
[2022-04-02] VITALS: BP 149/80
[2022-04-02 04:00] VITALS: BP 121/84
[2022-04-02] MEDS: BLOOD SUGAR DIAGNOSTIC STRIP TEST SCH (06:23)
[2022-04-02] MEDS: FAMOTIDINE 20MG TABLET PO SCH (09:50)
[2022-04-02] MEDS: ASPIRIN 325MG EC TABLET PO SCH (09:50)
[2022-04-02] MEDS: METRONIDAZOLE 500MG TABLET PO SCH (09:50)
[2022-04-02] MEDS: METOPROLOL TARTRATE 25MG TABLET PO SCH (09:51)
[2022-04-02] MEDS: AMIODARONE HCL 200 MG TABLET PO SCH (09:55)
[2022-04-02] MEDS: ENOXAPARIN 80MG/0.8ML SYR SUBCUT SCH (09:57)
[2022-04-02] MEDS: PANTOT AC/MIN OIL/PET HY-PHL OINT (AQUAPHOR) TOP SCH (09:58)
[2022-04-02] MEDS: INSULIN LISPRO 100 UNITS/ML SUBCUT SCH (10:01)
[2022-04-02 12:00] VITALS: BP 127/81
== END 2022-04-02 13:49 | disposition left against medical advice (07) | DRG 871 ==
LOC: ER 11:41 → 6WST 15:22 → EDBEDREQTM 15:27 → EDBEDREQ 15:27 → EDBEDREQSVC 15:27 → ENRESERV 15:43 → SUPCPDRO 15:55
PROVIDERS: ADMIT Internal Medicine; ATTEND Internal Medicine
PROC: 02HV33Z Insertion of Infusion Device into Superior Vena Cava, Percutaneous Approach (ICD-10-PCS; principal; 2022-03-27)
PROC: B548ZZA Ultrasonography of Superior Vena Cava, Guidance (ICD-10-PCS; 2022-03-27)
PROC: B5181ZA Fluoroscopy of Superior Vena Cava using Low Osmolar Contrast, Guidance (ICD-10-PCS; 2022-03-27)
DX: A41.89 Other specified sepsis (principal); E43 Unspecified severe protein-calorie malnutrition; I82.402 Acute embolism and thrombosis of unspecified deep veins of left lower extremity; N39.0 Urinary tract infection, site not specified; R65.20 Severe sepsis without septic shock; F41.9 Anxiety disorder, unspecified; I10 Essential (primary) hypertension; Z86.73 Personal history of transient ischemic attack (TIA), and cerebral infarction without residual deficits; E11.9 Type 2 diabetes mellitus without complications; Z68.27 Body mass index [BMI] 27.0-27.9, adult; E87.6 Hypokalemia; I48.91 Unspecified atrial fibrillation; K62.89 Other specified diseases of anus and rectum; D64.9 Anemia, unspecified; K21.9 Gastro-esophageal reflux disease without esophagitis; M19.90 Unspecified osteoarthritis, unspecified site; N28.9 Disorder of kidney and ureter, unspecified; R79.89 Other specified abnormal findings of blood chemistry; Z20.822 Contact with and (suspected) exposure to COVID-19; L89.156 Pressure-induced deep tissue damage of sacral region; Z79.4 Long term (current) use of insulin; Z79.84 Long term (current) use of oral hypoglycemic drugs
CPT/HCPCS: 36415; 36573; 71045; 71275; 74176; 80048; 80053; 80061; 80202; 80305; 81003; 82040; 82550; 82553; 82607; 82746; 82962; 83036; 83540; 83550; 83605; 83735; 84100; 84134; 84145; 84443; 84484; 85025; 87077; 87106; 87186; 87426; 93005; 93970; 97161; 99285; C1725; J0696; J1650; J1815; J2543; J3370; J3475; J3480; J3490; J7030; J7060; Q9967; A4315